=== PATIENT | female | born 1965 | race Caucasian/White ===

== ENCOUNTER → 2017-05-07 | Outpatient (CLI) | payer MEDICAID ==
[~2017-05-07] VITALS: Ht 162.6 cm; Wt 127.5 kg
[~2017-05-07] MED LIST: REGADENOSON 0.4 MG/5 ML SYR (LEXISCAN) IV ONE
[2017-05-07] MEDS: CATHETER FLUSH 10 ML SYR IV PRN ×2 (11:12→11:58)
[2017-05-07 11:56] VITALS: BP 154/105
== END ==
LOC: CARD 09:32
PROVIDERS: ATTEND Physician Assistant
DX: R00.1 Bradycardia, unspecified (principal); R07.89 Other chest pain; I10 Essential (primary) hypertension; G47.33 Obstructive sleep apnea (adult) (pediatric)
CPT/HCPCS: 78452; 93017; 93306

== ENCOUNTER → 2019-10-20 | Outpatient (CLI) | payer MEDICAID ==
[~2019-10-20] MED LIST changes: +CETI10TA21 PO; +CITA20TA9 PO; +DOXY100C2 PO; +HYDR25TA4 PO; +INDO25CA99 PO; +LISI10TA2 PO; +LORA10TA7 PO; +LOVA10TA PO; +METF-397 PO; +OMEP20CA18 PO; +POTA10TA10 PO; +PREG150C PO; -REGADENOSON 0.4 MG/5 ML SYR (LEXISCAN) IV ONE; +SUMA100T3 PO; +TOPI100T11 PO
--- NOTE | 2019-10-20 15:02 | Diagnostic Imaging Report ---
Indication: Right elbow pain AP, oblique and lateral views of the right elbow are obtained. FINDINGS: No acute fracture or dislocation is identified. No abnormal lytic or sclerotic focus is seen, and there is no radiopaque foreign body. IMPRESSION: No acute abnormality. Dictated by: Dictated on workstation # [id number]
== END ==
LOC: RAD FS 14:42
PROVIDERS: ATTEND Nurse Practitioner
DX: M25.521 Pain in right elbow (principal)
CPT/HCPCS: 73080

== ENCOUNTER 2021-07-12 05:34 | Outpatient (CLI) | payer MEDICAID ==
[~2021-07-12] VITALS: Ht 167.6 cm; Wt 133.4 kg
[~2021-07-12 05:34] MED LIST changes: -CETI10TA21 PO; +CETI10TA49 PO; -DOXY100C2 PO; +DOXY100C5 PO; -LISI10TA2 PO; +LISI10TA25 PO
[2021-07-13] MEDS ORDERED: PANT40TA52 PO (09:59)
[2021-07-13] MEDS ORDERED: BUPR150T24 PO (09:59)
[2021-07-13] MEDS ORDERED: IBUP-1780 PO (10:04)
[2021-07-13] MEDS ORDERED: GABA300C PO (10:04)
== END 2021-07-13 10:06 | disposition home or self-care (01) ==
LOC: PREOP 05:34
PROVIDERS: ATTEND Surgery
DX: Z01.818 Encounter for other preprocedural examination (principal)

== ENCOUNTER → 2021-07-15 | Outpatient (CLI) | payer MEDICAID ==
[~2021-07-15] MED LIST changes: +BUPR150T24 PO; +GABA300C PO; +IBUP-1780 PO; +PANT40TA52 PO
== END ==
LOC: LAB FS 10:21
PROVIDERS: ATTEND Surgery
DX: R11.0 Nausea (principal); Z20.822 Contact with and (suspected) exposure to COVID-19
CPT/HCPCS: 87635

== ENCOUNTER 2021-07-18 09:07 | Day surgery (SDC) | payer MEDICAID ==
[~2021-07-18] VITALS: Ht 167.6 cm; Wt 133.4 kg
[2021-07-18] MEDS ORDERED: LACTATED RINGERS 1,000 ML IV ONE (09:11)
[2021-07-18] MEDS ORDERED: LACTATED RINGERS 1,000 ML IV STA (09:12)
[2021-07-18] MEDS ORDERED: HURRICAINE EXT TUBE (BENZOCAINE) XX PRN (09:15)
[2021-07-18 09:25] VITALS: BP 118/80
--- NOTE | 2021-07-18 09:51 | Progress Note-Pre Operative ---
Pre-Operative Progress Note H&P Reviewed The H&P was reviewed, patient examined and no changes noted. Time Seen by Provider: 09:48 Date H&P Reviewed: Jul 18, 2021 Time H&P Reviewed: 09:48 Pre-Operative Diagnosis: nausea, difficulty swallowing MELINDA GARAY DO Jul 18, 2021 09:51
[2021-07-18] MEDS ORDERED: PROPOFOL INJECTION 50 ML IV ONE (10:14)
[2021-07-18] MEDS ORDERED: MIDAZOLAM 2 MG/2 ML (VERSED) VIAL ONE (10:14)
[2021-07-18] MEDS ORDERED: KETAMINE 50 MG/5 ML SYRINGE ONE (10:14)
[2021-07-18 10:30] VITALS: BP 136/76
--- NOTE | 2021-07-18 10:33 | Progress Note-Post Operative ---
Post-Operative Progess Note Surgeon (s)/Clinical Science Liaison (s) Surgeon MELINDA GARAY DO Clinical Science Liaison: none Pre-Operative Diagnosis nausea, difficulty swallowing Post-Operative Diagnosis Gastritis Gastric Ulcer Small sliding hiatal hernia Esophagitis Procedure & Operative Findings Date of Procedure 07/18/21 Procedure Performed/Findings EGD with bx PROCEDURE NOTE: After informed consent was obtained, the patient was brought to the endoscopy suite, placed in bed in left lateral decubitus position. She was administered IV sedation by the METAL MACHINE SETTER who then monitored vitals the entire time, heart rate, blood pressure and pulse ox and the scope was inserted down the mouth and just before vocal chords saw some very thick mucous blocking the way. Able to push past and down the esophagus into the stomach. Pushed into the stomach and past the antrum into the duodenum; duodenum looked good. Pulled back into the antrum noted some gastritis and what looked like an ulcer. Did a biopsy of antrum and then of the edge of the ulcer. Next retroflexed the scope and saw a small hiatal hernia sliding in and out with pt's breath; took a picture of this. Finally pulled the scope into the GE junction and took another picture of the hiatal hernia and then did a biopsy of the GE junction. Pushed the scope back into the stomach and suctioned all the air out of the stomach. At this point pulled the scope up the esophagus and noted some small implants of gastric mucosa; probably from acid and took a picture. Finally pulled the scope up and out of the mouth. The patient tolerated the procedure, and she recovered in endoscopy suite. Anesthesia Type IV sedation by METAL MACHINE SETTER Estimated Blood Loss Estimated blood loss (mL): scant Specimens/Packing Specimens Removed antral bx gastric ulcer bx GE jxn bx MELINDA GARAY DO Jul 18, 2021 10:33
--- NOTE | 2021-07-18 10:34 | Endoscopy Discharge Instruct ---
Endo Procedure/Findings Findings 1.: Gastric Ulcer 2.: Gastritis 3.: Hiatal Hernia Discharge Instructions - Activity: You might feel a little sleepy until tomorrow. This is due to the medicine you received to relax you. Until tomorrow, you should: NOT drive a car, operate machinery or power tools. NOT drink any alcoholic beverages. NOT make any important decisions or sign importortant papers. Do not return to work until tomorrow, unless otherwise instructed. Resume previous activities tomorrow. Diet: Start by taking liquids. If you tolerate liquids, advance to solid food. 1.: Other Recommendation (EGD in 6 months) Notify Physician - If you experience excessive bleeding, unusual abdominal pain, fever, or chest pain, contact your doctor immediately. MELINDA GARAY DO Jul 18, 2021 10:34
[2021-07-18 10:35] VITALS: BP 118/66
--- NOTE | 2021-07-18 10:47 | Anesthesia-General Post-Op ---
MAC Patient Condition Mental Status/LOC: Same as Preop Cardiovascular: Satisfactory Nausea/Vomiting: Absent Respiratory: Satisfactory Pain: Controlled Complications: Absent Post Op Complications Complications None Follow Up Care/Instructions Patient Instructions None needed. Anesthesiology Discharge Order Discharge Order Patient is doing well, no complaints, stable vital signs, no apparent adverse anesthesia problems. No complications reported per nursing. LOS CHAHAL CRNA Jul 18, 2021 10:47
[2021-07-18 11:41] VITALS: BP 118/66
== END 2021-07-18 11:24 | disposition home or self-care (01) ==
LOC: ENDO 09:07
PROVIDERS: ATTEND Surgery
DX: K29.70 Gastritis, unspecified, without bleeding (principal); K25.9 Gastric ulcer, unspecified as acute or chronic, without hemorrhage or perforation; K44.9 Diaphragmatic hernia without obstruction or gangrene; K21.00 Gastro-esophageal reflux disease with esophagitis, without bleeding; I10 Essential (primary) hypertension; E78.00 Pure hypercholesterolemia, unspecified; E11.9 Type 2 diabetes mellitus without complications; E66.9 Obesity, unspecified; F32.A Depression, unspecified; Z79.899 Other long term (current) drug therapy; Z68.42 Body mass index [BMI] 45.0-49.9, adult

== ENCOUNTER → 2022-08-08 | Outpatient (CLI) | payer MEDICAID ==
--- NOTE | 2022-08-08 18:22 | Diagnostic Imaging Report ---
Indication: Osteoarthritis of the left knee. Time of Exam: 2:57 PM 3 views of the left knee were obtained. There is tricompartmental degenerative change with moderate joint space narrowing and marginal spurring. No fracture, dislocation or effusion is identified. There is a well-corticated osseous density in the suprapatellar location, which may represent an osteochondroma. IMPRESSION: Chronic changes. No acute bony abnormality is detected. Dictated by: Dictated on workstation # [id number]
== END ==
LOC: RAD FS 14:39
PROVIDERS: ATTEND Nurse Practitioner
DX: M17.12 Unilateral primary osteoarthritis, left knee (principal)
CPT/HCPCS: 73562

== ENCOUNTER → 2023-03-15 | Outpatient (CLI) | payer MEDICAID ==
[~2023-03-15] MED LIST changes: +GADOTERATE 0.5 MMOL/ML (CLARISCAN) 20 ML VIAL IV ONE
--- NOTE | 2023-03-15 16:18 | Diagnostic Imaging Report ---
PROCEDURE: MR imaging of the brain with and without contrast. TECHNIQUE: Multiplanar, multisequence MR imaging of the brain was performed with and without contrast. DATE: March 15, 2023. COMPARISON: None available. HISTORY: 57-year-old female, reported previously noted cystic intracranial mass seen on prior CTA. FINDINGS: There is no restricted diffusion. There is no area of abnormal intracranial susceptibility. The ventricles and CSF spaces are normal in size and configuration for patient age. There is no abnormal extra axial fluid collection. There is no acute intracranial hemorrhage. There is no mass effect or midline shift. There are multifocal areas of T2 and FLAIR hyperintense signal in the periventricular and subcortical white matter as well as in the bib which are nonspecific but most likely reflect at least moderate findings of chronic small vessel ischemic disease. There is an area of encephalomalacia in the left cerebellum. This may reflect a prior remote infarct. There is no evidence of an arachnoid cyst. There is no abnormal intracranial enhancement. There is normal aeration of the visualized paranasal sinuses and mastoid air cells. IMPRESSION: 1. No evidence of arachnoid cyst or other intracranial mass. 2. 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 3. Probable moderate to severe findings of chronic small vessel ischemic disease. 4. No acute intracranial abnormality. Dictated by: Dictated on workstation # [id number]
== END ==
LOC: RAD 14:34
PROVIDERS: ATTEND Family Medicine
DX: G93.89 Other specified disorders of brain (principal); R93.0 Abnormal findings on diagnostic imaging of skull and head, not elsewhere classified
CPT/HCPCS: 70553